=== PATIENT | female | born 1935 | race Caucasian/White ===

== ENCOUNTER 2018-05-22 15:28 | Emergency (ER) | payer MEDICARE ==
[~2018-05-22] VITALS: Ht 167.6 cm; Wt 74.8 kg
[~2018-05-22 15:28] MED LIST: AMITRIPTYLINE H50 MG PO; DIOVAN160 MG PO; ELAVIL10 MG; LIPITOR10 MG PO; SPIRONOLACTONE25 MG PO; Z.0.CARDIZEM30 MG; Z.0.HYZAAR 50-12.51; Z.0.LIPITOR40 MG; ZEBETA10 M1 PO
--- OUTSIDE RECORDS SUMMARY | 2018-05-22 15:31 | XMS REPORT | Clinical Summary ---
Author Author NATALIE [facility]BookE[facility] CenterMil[facility]Ad[facility] Address Unknown Phone Unavailable Care Team Providers Care Form Building Supervisor Name Role Phone Esther Ordonez MD PCP Unavailable Allergies Comments Active Allergy Reactions Severity Noted Date Converted from ECW; Codeine Converted from ECW; Penicillins Medications End Date Status Medication Sig Dispensed Refills Start Date Active valsartan (DIOVAN) 160 MG Take 160 mg 0 tabletIndications: by mouth 2 Essential hypertension (two) times daily . Active bisoprolol-hydrochlorothi Take 1 tablet 0 azide (ZIAC) 5-6.25 mg by mouth 2 per tabletIndications: (two) times Essential hypertension daily. Active atorvastatin (LIPITOR) 10 Take 10 mg by 0 MG tabletIndications: mouth daily. Hyperlipidemia Active amLODIPine (NORVASC) 2.5 Take 2.5 mg 0 MG tabletIndications: by mouth Essential hypertension nightly. Active bimatoprost (LUMIGAN) 1 drop 0 0.03 % ophthalmic drops nightly. Active traZODone (DESYREL) 50 MG TAKE 1 30 tablet 2 tablet TABLET(50 MG) 6 BY MOUTH EVERY NIGHT Active Problems Problem Noted Date Depression, unspecified depression type 11/05/2015 Recurrent UTI 11/05/2015 Insomnia 01/15/2015 Renal insufficiency 01/15/2015 Status post CVA 01/15/2015 Migraine headache 01/15/2015 Impaired fasting glucose 04/09/2011 Overview: Essential hypertension 10/14/2010 Overview: Converted from ECW Hyperlipidemia 10/14/2010 Overview: Converted from ECW Immunizations Name Dates Previously Given Next Due Pneumococcal 09/05/2007 Polysaccharide (Pneumovax) Family History Medical History Relation Name Comments Throat cancer Brother Kidney cancer Mother Cervical cancer Sister Relation Name Status Comments Brother Father Mother Sister Social History Date Tobacco Use Types Packs/Day Years Used Never Smoker Smokeless Tobacco: Never Used Alcohol Use Drinks/Week oz/Week Comments No Sex Assigned at Date Recorded Not on file Industry Job Start Date Occupation Not on file Not on file Not on file Travel End Travel History Travel Start No recent travel history available. Last Filed Vital Signs Not on file Plan of Treatment Health Maintenance Due Date Last Done Comments INFLUENZA VACCINE 11/14/2017 Results Not on fileafter 05/21/2017 Insurance Payer Benefit Subscriber ID Type Phone Address Plan / Group MEDICARE MEDICARE A xxxxxxxxxx Medicare B MCR SUPPLEMENT/INDIVIDUAL AARP/UNITE xxxxxxxxxxx [facility] D HEALTHCARE
--- OUTSIDE RECORDS SUMMARY | 2018-05-22 15:39 | XMS REPORT | Clinical Summary ---
Author Author NATALIE [facility]St[facility] Address Unknown Phone Unavailable Care Team Providers Care Fryer Line Helper Name Role Phone Esther Ordonez MD PCP [...] xxxxxxxxxx Medicare B MCR SUPPLEMENT/INDIVIDUAL AARP/UNITE xxxxxxxxxxx [facility] D HEALTHCARE
[2018-05-22] MEDS ORDERED: BISOPROLOL-HCT1 EAC1 PO (15:46)
[2018-05-22] MEDS ORDERED: ATORVASTATIN CA20 MG PO (15:46)
[2018-05-22] MEDS ORDERED: DIPHENOXYLATE-1 EACH PO (15:46)
[2018-05-22] MEDS ORDERED: ESCITALOPRAM OX10 MG PO (15:46)
[2018-05-22] MEDS ORDERED: VALSARTAN/HCTZ PO (15:46)
[2018-05-22] MEDS ORDERED: AMLODIPINE BES2.5 MG PO (15:46)
--- NOTE | 2018-05-22 17:07 | Diagnostic Imaging Report ---
Exam: Head CT without contrast Indication: Fall presumably from standing Comparisons: None Technique: Axial images were obtained from the skull base to the vertex. Coronal and sagittal images reconstructed from the axial data. Dose modulation, iterative reconstruction, and/or weight based adjustment of the mA/kV was utilized to reduce the radiation dose to as low as reasonably achievable. Intravenous contrast: None Findings: Scalp/skull: No abnormalities. Extra-axial spaces: No masses. No fluid collections. Brain sulci: Mildly prominent. Ventricles: Mild compensatory dilatation. No hydrocephalus. Parenchyma: Scattered hypodensities in the supratentorial white matter are small vessel ischemic changes. Focal cortico-subcortical encephalomalacia in the left precentral gyrus, likely the sequela from old trauma, ischemia or infection. No masses, hemorrhage, acute or chronic cortical vascular insults. Sellar/suprasellar region: No abnormalities. Craniocervical junction: Patent foramen magnum. No Chiari one malformation. Incidental findings: Atherosclerotic calcifications in the carotid siphons . Impression: No acute abnormalities. Chronic findings: 1. Mild generalized volume loss. 2. Moderate supratentorial white matter small vessel ischemic changes. 3. Focal cortico-subcortical encephalomalacia in the left precentral gyrus. A preliminary report was provided by Dr. Campos on 05/22/2018 5:06 PM. The images and preliminary report provided by the neuroradiology fellow were reviewed and a final report issued by Dr. Pike neuroradiology faculty on 05/23/2018 and 12 0 6:00 AM. Signed by: Dr. Valerie Bruce M.D. on 05/23/2018 12:06 AM
--- NOTE | 2018-05-22 17:21 | Diagnostic Imaging Report ---
Examination: Cervical spine and maxillofacial CT without contrast. History: Fall, pain Comparison studies:None Technique: Axial images were obtained from the face and cervical spine. Coronal and sagittal reconstructions obtained from the axial data. Dose modulation, iterative reconstruction, and/or weight based adjustment of the mA/kV was utilized to reduce the radiation dose to as low as reasonably achievable. Findings: Maxillofacial CT: Soft tissues: No abnormalities.. Bones: No fractures or bony abnormalities. . Orbits: No abnormalities. Paranasal sinuses: Clear. Cervical spine CT: Airway: Patent. Fractures: None. Soft tissues: No gross abnormalities. Atlantoaxial articulation: Intact. Alignment: Straightening of the normal cervical lordosis. A 3 mm anterolisthesis of C7 on T1. Cervicomedullary junction: No abnormalities. The foramen magnum is patent. Vertebrae: No infection or neoplasm. Fusion of C2 and C3 posterior elements. Degenerative changes: Mildly degenerated discs from C4 to C7. Limited evaluation of canal stenosis. Foraminal stenoses moderately severe bilaterally at C5-C6 and severe bilaterally at C6-C7. Incidental findings: A 1.4 cm hyperdense nodule within the right thyroid lobe (series 6, image 36), which does not require further follow-up. IMPRESSION: Facial CT: 1. Unremarkable maxillofacial CT without contrast. Cervical spine CT: 1. Age-indeterminate 3 mm anterolisthesis/subluxation of C7 on T1 likely degenerative due to facet arthrosis. If clinical concern for ligamentous injury consider cervical spine MRI performed in evaluation. 2. Cannot adequately evaluate for ligament, spinal cord and or vascular abnormalities on the basis of the current examination. 3. 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 A preliminary report was provided by Dr. Campos on 05/22/2018 5:20 PM. The images and preliminary report provided by the neuroradiology fellow were reviewed and a final report issued by Dr. Pike neuroradiology faculty on 05/23/2018 12:13 AM. Signed by: Dr. Valerie Bruce M.D. on 05/23/2018 12:13 AM
--- NOTE | 2018-05-22 19:10 | NUR ---
Report to Jessica Hernandez LVN.
--- NOTE | 2018-05-22 19:22 | Diagnostic Imaging Report ---
Exam: Right wrist 3 views History: Pain, fall Comparison: None. Findings: Nondisplaced fracture involving the radial styloid. Soft tissue swelling. 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 Scapholunate interval widening. Impression: Nondisplaced fracture involving the radial styloid. Signed by: Dr. Wilbert Aleman M.D. on 05/22/2018 7:18 PM
[2018-05-22 20:08] VITALS: BP 129/94
== END 2018-05-22 20:01 | disposition home or self-care (01) ==
LOC: ER 15:37
DX: S00.83XA Contusion of other part of head, initial encounter (principal); S52.514A Nondisplaced fracture of right radial styloid process, initial encounter for closed fracture; S02.5XXA Fracture of tooth (traumatic), initial encounter for closed fracture; S00.511A Abrasion of lip, initial encounter; W18.30XA Fall on same level, unspecified, initial encounter; Y92.008 Other place in unspecified non-institutional (private) residence as the place of occurrence of the external cause; I10 Essential (primary) hypertension; Z86.73 Personal history of transient ischemic attack (TIA), and cerebral infarction without residual deficits
CPT/HCPCS: 70450; 70486; 72125; 99284

== ENCOUNTER 2019-08-02 05:33 | Emergency (ER) | payer MEDICARE ==
[~2019-08-02] VITALS: Ht 167.6 cm; Wt 74.8 kg
[~2019-08-02 05:33] MED LIST changes: +AMLODIPINE BES2.5 MG PO; +ATORVASTATIN CA20 MG PO; +BISOPROLOL-HCT1 EAC1 PO; +DIPHENOXYLATE-1 EACH PO; +ESCITALOPRAM OX10 MG PO; +VALSARTAN/HCTZ PO
--- NOTE | 2019-08-02 05:41 | Emergency Department Note ---
History of Present Illnes History of Present Illness History of Present Illness This is a 83 year old female slipped on a liquid surface onto her back at 1900. Patient with back pain and L leg pain. No deformity noted of the B/L LE. Historian: Patient, Family Member, Property Management Assistant/EMS Arrival Mode: [facility] EMS Treatment AUTOMOTIVE COLLISION ESTIMATOR: See EMS Report Onset (how long ago): hour(s) (10) Location: back and left leg Radiation: Reports back, Reports extremity Duration (how long): hour(s) (10) Progression: unchanged Chronicity: new Context: Reports trauma/injury Relieving factors: immobilization Exacerbating factors: movement Associated symptoms: Reports denies other symptoms Treatments prior to arrival: none (YASH BUSTILLOS DO) Past Medical/Family History Physician Review I have reviewed the patient's past medical and family history. Any updates have been documented here. (YASH BUSTILLOS DO) Past Medical History Recent Fever: No Clinical Suspicion of Infectio: No New/Unexplained Change in Ment: No Past Medical History: Hypertension, CVA, Hyperlipedemia Past Surgical History: Hysterectomy (YASH BUSTILLOS DO) Social History Smoking Cessation: Never Smoker Alcohol Use: None Any Illegal Drug Use: No (YASH BUSTILLOS DO) Other Last Tetanus: UNK (YASH BUSTILLOS DO) Review of Systems Review of Systems Musculoskeletal: Reports back pain, Reports other (left leg pain) (YASH BUSTILLOS DO) Physical Exam Related Data Allergies: Coded Allergies: Penicillins (Verified Allergy, Mild, RASH, 05/22/18) diltiazem (Verified Allergy, Unknown, 05/22/18) Triage Vital Signs Vital Signs Date Time Temp Pulse Resp B/P (MAP) Pulse Ox O2 Delivery O2 Flow Rate FiO2 08/02/19 05:44 98.1 59 16 176/63 99 Vital signs reviewed: Yes (YASH BUSTILLOS DO) Physical Exam CONSTITUTIONAL Constitutional: Present well-developed, Present well-nourished HENT HENT: Present normocephalic, Present atraumatic, Present oropharynx clear/moist, Present nose normal HENT L/R: Present left ext ear normal, Present right ext ear normal EYES Eyes: Reports PERRL, Reports conjunctivae normal NECK Neck: Present ROM normal PULMONARY Pulmonary: Present effort normal, Present breath sounds normal CARDIOVASCULAR Cardiovascular: Present regular rhythm, Present heart sounds normal, Present capillary refill normal, Present normal rate GASTROINTESTINAL Abdominal: Present soft, Present nontender, Present bowel sounds normal GENITOURINARY Genitourinary: Present exam deferred SKIN Skin: Present warm, Present dry MUSCULOSKELETAL Musculoskeletal: Present tenderness (midline lumbar pain), Present other (Tenderness to palpation mid shaft Left femur); Absent deformity NEUROLOGICAL Neurological: Present alert, Present oriented x 3, Present no gross motor or sensory deficits PSYCHOLOGICAL Psychological: Present mood/affect normal, Present judgement normal (YASH BUSTILLOS DO) Results Imaging Imaging results reviewed: Yes Impressions IMPRESSION: Round lucency projects at the left knee suprapatellar joint space, likely artifact. Recommend dedicated left knee radiographs. Degenerative changes in the hip and knee. IMPRESSION: No acute radiographic osseous abnormality. 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 Osseous demineralization. Signed by: Julio Cesar Polanco DO on 08/02/2019 7:29 AM (KARTHIKEYAN KOWALSKI DO) Assessment & Plan Medical Decision Making MDM 83 year old female sustained a mechanical fall yesterday with resultant pain to the back and left leg. Xrays ordered to r/o fracture or dislocation (YASH BUSTILLOS DO) MDM Sign obtained from Dr. Bustillos to follow-up imaging and reevaluate patient. Imaging all unremarkable, patient and daughter informed. Patient's pain well controlled ED. Patient stable for discharge. (KARTHIKEYAN KOWALSKI DO) Assessment & Plan Final Impression: (1) Knee pain (KARTHIKEYAN KOWALSKI DO) Depart Disposition: HOME, SELF-alf Meds Reported Medications Diphenoxylate Hcl/Atropine (DIPHENOXYLATE-ATROPINE TABLET) 1 Each Tablet, 1 TAB PO PRN 05/22/18 Amlodipine Besylate (AMLODIPINE BESYLATE) 2.5 Mg Tablet, 5 MG PO DAILY 05/22/18 [Valsartan/Hctz] 320/12.5 No Conflict Check, 1 TAB PO DAILY 05/22/18 Atorvastatin Calcium (ATORVASTATIN CALCIUM) 20 Mg Tablet, 10 MG PO HS Take with bisoprolol 05/22/18 Bisoprolol Fumarate/Hctz (BISOPROLOL-HCTZ 5-6.25 MG TAB) 1 Each Tablet, 1 TAB PO DAILY 05/22/18 Escitalopram Oxalate (ESCITALOPRAM OXALATE) 10 Mg Tablet, 10 MG PO HS 05/22/18 Atorvastatin Calcium* (LIPITOR*) 10 Mg Tablet, 10 MG PO DAILY 05/29/13 YASH BUSTILLOS DO Aug 02, 2019 05:41 KARTHIKEYAN KOWALSKI DO Aug 02, 2019 08:14
[2019-08-02] MEDS ORDERED: HYDROCODONE/APAP 5MG-325MG TAB PO STA (05:45)
--- NOTE | 2019-08-02 07:02 | NUR ---
REPORT GIVEN TO ANICETO WELLS.
--- NOTE | 2019-08-02 07:05 | NUR ---
client aided to , TAKEN TO RR BY DAUGHTER. REPORTS PAIN TO RIGHT KNEE. Addendum: 08/02/19 at 0809 by HI pain is to left knee
--- NOTE | 2019-08-02 07:33 | Diagnostic Imaging Report ---
X-ray lumbar spine 3 views HISTORY: Pain. COMPARISON: None available. DISCUSSION: Some of the osseous structures are partially obscured by stool and bowel gas. There are five non-rib bearing lumbar vertebral bodies. The alignment of the spine is within normal limits. No displaced fracture or compression deformity is identified. Osseous demineralization. Disc Spaces: Multilevel disc osteophytes. Disc height narrowing at L4-L5. Facets: Hypertrophic sclerotic facet arthropathy in the mid to lower lumbar spine. IMPRESSION: No acute radiographic osseous abnormality. 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 Osseous demineralization. Signed by: Julio Cesar Polanco DO on 08/02/2019 7:29 AM
--- NOTE | 2019-08-02 07:35 | Diagnostic Imaging Report ---
X-ray left femur 2 views HISTORY: Pain. COMPARISON: None available. FINDINGS: Bones: No acute displaced fracture. Osseous alignment is within normal limits. Joints: No dislocations. Degenerative changes in the hip and knee. Soft tissues: Round lucency projects at the left knee joint space. Vascular calcifications. IMPRESSION: Round lucency projects at the left knee suprapatellar joint space, likely artifact. Recommend dedicated left knee radiographs. Degenerative changes in the hip and knee. Signed by: Julio Cesar Polanco DO on 08/02/2019 7:32 AM
--- NOTE | 2019-08-02 09:35 | Diagnostic Imaging Report ---
EXAMINATION: KNEE LEFT THREE VIEWS INDICATION: Knee pain COMPARISON: None FINDINGS: No acute fracture or dislocation. Alignment is anatomic. No joint effusion. Minimal degenerative changes. Quadriceps enthesopathy. Soft tissues appear unremarkable. IMPRESSION: No acute osseous injury. Signed by: Miguel Angel Hanna MD on 08/02/2019 9:32 AM
[2019-08-02 09:51] VITALS: BP 177/77
[2019-08-02] MEDS ORDERED: LIDOCAINE 4% PATCH TP STA (10:04)
[2019-08-02] MEDS ORDERED: LIDOCAINE 4% PATCH TP ONE (10:12)
== END 2019-08-02 10:29 | disposition home or self-care (01) ==
LOC: ER 05:33
DX: M25.562 Pain in left knee (principal); M54.5 Low back pain; W01.0XXA Fall on same level from slipping, tripping and stumbling without subsequent striking against object, initial encounter; I10 Essential (primary) hypertension; E78.5 Hyperlipidemia, unspecified; Z86.73 Personal history of transient ischemic attack (TIA), and cerebral infarction without residual deficits
CPT/HCPCS: 72100; 99284

== ENCOUNTER → 2022-01-01 | Day surgery (SDC) | payer MEDICARE ==
[2021-12-31 10:37] LABS: BASOPHILS % 0.6 % (0.0-1.0); EOSINOPHILS # (AUTO) 0.1 (0.0-0.4); HEMATOCRIT 35.1 % (34.2-44.1); HEMOGLOBIN 11.2 g/dL (12.0-16.0); LYMPHOCYTES # (AUTO) 1.8 (1.0-3.2); LYMPHOCYTES % 36.2 % (18.0-39.1); MEAN CORPUSCULAR HGB CONC 31.9 g/dL (31-35); MEAN CORPUSCULAR VOLUME 103.5 fL (81-99); MONOCYTES # (AUTO) 0.5 (0.2-0.8); MONOCYTES % 9.3 % (4.4-11.3); NEUTROPHILS # (AUTO) 2.6 (2.1-6.9); NEUTROPHILS % 51.7 % (38.7-80.0); PLATELET COUNT 152 x10e3/uL (140-360); RED BLOOD COUNT 3.39 x10e6/uL (3.6-5.1); RED CELL DISTRIBUTION WIDTH 13.7 % (11.7-14.4)
[2021-12-31 10:56] LABS: ANION GAP 12.5 mmol/L (8-16); CREATININE, SERUM 0.99 mg/dL (0.57-1.11); POTASSIUM 3.5 mmol/L (3.5-5.1)
[~2022-01-01] MED LIST changes: +ATIVAN1 MG PO; +BUPIVACAINE HCL 0.5% 10ML MPF VIAL INJ ONE; +CARVEDILOL12.5 MG PO; +CLOPIDOGREL75 MG PO; +DEXAMETHASONE SOD PHOS INJ 4 MG/ML SDV ONE; +DIVALPROEX SOD125 MG PO; +FENTANYL CITRATE/PF 100MCG/2 ML INJ ONE; +HYDRALAZINE HCL25 MG PO; +LIDOCAINE HCL 2% LOCAL INJ 5 ML SDV VIAL INJ ONE; +LOSARTAN POTASS25 MG PO; +MIRTAZAPINE7.5 MG PO; +NAMENDA10 MG PO; +NEOSTIGMINE 1 MG/ML 10ML VIAL ONE; +OLANZAPINE5 MG PO; +OMEPRAZOLE20 MG PO; +ONDANSETRON HCL INJ 2MG/ML 2ML 2 MG/ML VIAL ONE; +PHENYLEPHRINE HCL 1% 10 MG/ML VIAL ONE; +PROPOFOL IV EMULSION 10 MG/ML 20 ML VIAL ONE; +SEVOFLURANE INHAL SOLN 250 ML PEN BTL ONE; +SODIUM CHLORIDE 0.9% 250ML 250 ML ONE; +Vancomycin IV 1 GM VIAL ONE
[2022-01-01 10:50] VITALS: BP 117/87
== END | disposition home or self-care (01) ==
LOC: OR 07:19
PROVIDERS: ATTEND Podiatrist Foot Surgery
DX: M20.42 Other hammer toe(s) (acquired), left foot (principal); I10 Essential (primary) hypertension; F03.90 Unspecified dementia, unspecified severity, without behavioral disturbance, psychotic disturbance, mood disturbance, and anxiety; Z88.6 Allergy status to analgesic agent; Z88.0 Allergy status to penicillin; Z01.810 Encounter for preprocedural cardiovascular examination; Z01.812 Encounter for preprocedural laboratory examination; Z01.818 Encounter for other preprocedural examination; Z79.899 Other long term (current) drug therapy; Z95.0 Presence of cardiac pacemaker
CPT/HCPCS: 28285; 36415; 71046; 76000; 80048; 85025; 93005; J1100; J2001; J2370; J2405; J2704; J2710; J3010; J3370; J7050